=== PATIENT | female | born 1975 | race Caucasian/White ===

== ENCOUNTER → 2016-12-18 | Outpatient (CLI) | payer MEDICARE ==
--- NOTE | 2016-12-18 08:58 | MM ---
Reason for exam: clinical finding. Last mammogram was performed 4 years and 4 months ago. History: Took hormonal contraceptives for 9 years beginning at age 18. Physical Findings: Nurse did not find any significant physical abnormalities on exam. MG 3D Diag Mammo W/Cad ROLA Bilateral CC and MLO view(s) were taken. Prior study comparison: August 20, 2012, bilateral digital screening mammo w/CAD. February 17, 2012, left diagnostic mammogram w/CAD. The breast tissue is extremely dense which could obscure a lesion on mammography. There is no discrete abnormality including area of concern. No significant new findings when compared with previous films. These results were verbally communicated with the patient and result sheet given to the patient on 12/18/16. ASSESSMENT: Incomplete: need additional imaging evaluation, BI-RAD 0 RECOMMENDATION: Ultrasound of the right breast. Manage patient on a clinical basis.
--- NOTE | 2016-12-18 09:00 | USB ---
Reason for exam: additional evaluation requested from abnormal screening. History: Took hormonal contraceptives for 9 years beginning at age 18. US Breast RT Right breast ultrasound includes all four quadrants, the retroareolar region and axilla. Finding demonstrates 1.1 x 0.3 x 0.8cm oval, mixed, hypoechoic probable fibrodenoma at 3 o'clock. These results were verbally communicated with the patient and result sheet given to the patient on 12/18/16. ASSESSMENT: Probably benign, BI-RAD 3 RECOMMENDATION: Ultrasound of the right breast in 6 months.
== END | disposition home or self-care (01) ==
LOC: RADMAMWWP 07:37
PROVIDERS: ATTEND Family Medicine
DX: R92.2 Inconclusive mammogram (principal); R92.8 Other abnormal and inconclusive findings on diagnostic imaging of breast; N64.4 Mastodynia
CPT/HCPCS: 76641; G0204; G0279

== ENCOUNTER → 2017-01-07 | Outpatient (CLI) | payer MEDICARE ==
--- NOTE | 2017-01-08 09:24 | MR ---
EXAMINATION TYPE: MR orbits wo/w con DATE OF EXAM: 01/07/2017 3:48 PM COMPARISON: MRI brain 03/24/2015 HISTORY: Migraines, lt eye spasms/loss of vision for moments at a time Pseudopapilledema of optic disc. TECHNIQUE: Multiplanar multiecho imaging on a 3.0 Carissa magnet is performed through the orbits. CONTRAST: Standard multiplanar, multisequence MRI departmental protocol utilizing 11 mL intravenous MultiHance gadolinium contrast. FINDINGS: The craniovertebral junction is normal. Pituitary appears unremarkable. Corpus callosum and sagittal plane appears unremarkable. Internal auditory canals and cerebellar pontine angles within t he [id number] are unremarkable. Normal vascular flow voids are within the carotid siphon and anter ior platinum of Carter. Vertebrobasilar system as visualized appears normal. Anterior communicating art eli is patent. The orbits are symmetrical. Globes are symmetrical. Intraconal and extraconal fat appears normal. No abnormal enhancement is evident within the orbits are within the visualized portions of the brain. P ortions of the ventricles within the [id number] appear unremarkable. No temporal horn dilatation i s evident to suggest hydrocephalus or increased intracranial pressure. Superior ophthalmic veins appe ar normal. Lacrimal glands are unremarkable. Extraocular muscles appear normal IMPRESSION: MRI of the orbits appear unremarkable. No suspicious etiology to account for papilledema is evident
== END | disposition home or self-care (01) ==
LOC: RADMRIMAIN 15:02
PROVIDERS: ATTEND Ophthalmology
DX: H47.033 Optic nerve hypoplasia, bilateral (principal); G43.909 Migraine, unspecified, not intractable, without status migrainosus
CPT/HCPCS: 70543; A9577

== ENCOUNTER → 2017-02-04 | Day surgery (SDC) | payer MEDICARE ==
[~2017-02-04] MED LIST: BACITRACIN OINT 1 EACH PACKET TOPICAL ONE; LIDOCAINE 1% INJ 10MG/ML (20 ML MDV) ONE; LIDOCAINE 1%-EPI 1:100,000 20 ML VIAL ONE
--- NOTE | 2017-02-04 13:52 | USB ---
EXAMINATION TYPE: US biopsy breast VAD RT DATE OF EXAM: 02/04/2017 CLINICAL HISTORY: N63 Breast lump. TECHNIQUE: Ultrasound guided core biopsy of right breast. COMPARISON: NONE FINDINGS: The procedure of ultrasound guided core biopsy was explained to the patient. Benefits, alternatives, and risks were discussed. An informed consent was then obtained. The patient was placed in supine positioning for imaging and for the procedure. The overlying skin was prepped and draped in usual sterile fashion. 1 % Xylocaine with and without epinephrine was used to anesthetize the skin and subcutaneous tissue up to area of concern in the right breast. Under ultrasound guidance, a 12-gauge vacuum assisted biopsy gun device was used to obtain 6 core samples. Following this, a biopsy clip was left in lesion. The patient tolerated the procedure well without any immediate complication. The patient was kept in the radiology department for short stay after the procedure and then discharged home in stable condition. Estimated blood loss was less than 1 cc. Pathology is pending. IMPRESSION: SUCCESSFUL ULTRASOUND-GUIDED VAD BIOPSY OF THE RIGHT BREAST. Pathology Results: Benign BREAST, LEFT, CORE BIOPSY: FIBROCYSTIC CHANGES INCLUDING CYSTS, FIBROSIS, APOCRINE METAPLASIA, AND ADENOSIS. Recommendation Follow up ultrasound of the left breast in 6 months. MAYE
== END ==
LOC: RADUSWWP 12:30
PROVIDERS: ATTEND Surgery
DX: D24.1 Benign neoplasm of right breast (principal); N63 Unspecified lump in breast; N60.31 Fibrosclerosis of right breast; N60.21 Fibroadenosis of right breast; N60.11 Diffuse cystic mastopathy of right breast
CPT/HCPCS: 88305; 19083; A4648; J2001

== ENCOUNTER 2018-05-02 12:52 | Emergency (ER) | payer MEDICARE ==
[2018-05-02 13:31] VITALS: BP 143/89; PULSE 86; RESP 16; TEMP 98
[2018-05-02] MEDS ORDERED: SODIUM CHLORIDE 0.9% 1,000 ML IV ONE (13:59)
--- NOTE | 2018-05-02 14:29 | ED ---
General Adult HPI - General Chief complaint: Recheck/Abnormal Lab/Rx Stated complaint: poss medication rxn Time Seen by Provider: 05/02/18 13:52 Source: patient, RN notes reviewed, old records reviewed Mode of arrival: ambulatory Limitations: no limitations - History of Present Illness Initial comments: 42-year-old female presents for suspected medication reaction. Patient took doxycycline which she is taking for acne. Approximately 30-45 minutes after taking that she had multiple complaints including bilateral ear pain, headache, chest pain, abdominal pain. Patient had some nausea no vomiting. She states she has previously had same reaction to tetracycline. She reports this medication and did not know that doxycycline was related. - Related Data Home Medications Medication Instructions Recorded Confirmed ALPRAZolam [Xanax] 0.5 mg PO Q8HR PRN 09/07/15 09/07/15 Cholecalciferol [Vitamin D3] 1,000 unit PO DAILY 09/07/15 09/07/15 Diclofenac Potassium [Cataflam] 50 mg PO TID PRN 09/07/15 09/07/15 Dicyclomine [Bentyl] 10 mg PO QID 09/07/15 09/07/15 FLUoxetine HCL [PROzac] 40 mg PO DAILY 09/07/15 09/07/15 Levothyroxine Sodium [Synthroid] 25 mcg PO QAM 09/07/15 09/07/15 Meclizine [Antivert] 25 mg PO TID PRN 09/07/15 09/07/15 Promethazine [Phenergan] 25 mg PO Q8H PRN 09/07/15 09/07/15 Rizatriptan Benzoate [Maxalt] 10 mg PO ONCE PRN 09/07/15 09/07/15 Topiramate 75 mg PO BID 09/07/15 09/07/15 oxyCODONE-APAP 5-325MG [Percocet 1 tab PO TID PRN 09/07/15 09/07/15 5-325 mg] traZODone HCL [Desyrel] 100 mg PO HS 09/07/15 09/07/15 Allergies Allergy/AdvReac Type Severity Reaction Status Date / Time latex Allergy RED SKIN Verified 05/02/18 13:30 AND SKIN BLISTERING doxycycline AdvReac Unknown Verified 05/02/18 14:29 morphine AdvReac severe Verified 05/02/18 13:30 vomiting Review of Systems ROS Statement: Those systems with pertinent positive or pertinent negative responses have been documented in the HPI. ROS Other: All systems not noted in ROS Statement are negative. Past Medical History Past Medical History: Fibromyalgia, Thyroid Disorder Additional Past Medical History / Comment(s): SEE DR KURTZ'S H&P, HX MIGRAINES ,HYPOTHYROIDISM,PARATHYROIDISM,IBS,VERTIGO,SOB History of Any Multi-Drug Resistant Organisms: None Reported Past Surgical History: Hysterectomy Additional Past Surgical History / Comment(s): CUBITAL AND CARPEL TUNNEL Past Anesthesia/Blood Transfusion Reactions: Motion Sickness, Postoperative Nausea & Vomiting (PONV) Past Psychological History: Anxiety, Depression Smoking Status: Never smoker Past Alcohol Use History: None Reported Past Drug Use History: None Reported - Past Family History Mother Family Medical History: Mitral Valve Prolapse (MVP) Father Family Medical History: No Reported History General Exam Limitations: no limitations General appearance: alert, in no apparent distress, anxious Head exam: Present: atraumatic, normocephalic Eye exam: Present: normal appearance, PERRL, EOMI ENT exam: Present: normal exam Neck exam: Present: normal inspection. Absent: tenderness, meningismus Respiratory exam: Present: normal lung sounds bilaterally. Absent: respiratory distress, wheezes, rales Cardiovascular Exam: Present: regular rate, normal rhythm GI/Abdominal exam: Present: soft. Absent: distended, tenderness, guarding, rebound Extremities exam: Present: normal inspection Neurological exam: Present: alert, oriented X3, CN II-XII intact. Absent: motor sensory deficit Psychiatric exam: Present: normal affect, normal mood Skin exam: Present: warm, dry, intact. Absent: cyanosis, diaphoretic Course Vital Signs 05/02/18 13:29 Temperature 98 F Pulse Rate 86 Respiratory 16 Rate Blood Pressure 143/89 O2 Sat by Pulse 98 Oximetry Medical Decision Making - Medical Decision Making 42-year-old female presenting with suspected ALLERGIC reaction. Patient has multiple complaints, she is evaluated in the emergency department, EKG, laboratory studies, and urinalysis are ordered however on reevaluation prior to these tests being obtained patient is feeling better. She is eager for discharge. She does not want any further testing or evaluation the emergency department. Doxycycline is adequate to her ALLERGY profile. She will follow- up with her primary care physician and return with worsening or changing symptoms. Disposition Clinical Impression: Medication reaction Disposition: HOME SELF-CARE Condition: Good Instructions: Antibiotic Medication Allergy (ED) Is patient prescribed a controlled substance at d/c from ED?: No Referrals: Sánchez Martel DO [Primary Care Provider] - 1-2 days Time of Disposition: 14:28
== END 2018-05-02 14:49 | disposition home or self-care (01) ==
LOC: EC 12:52
DX: R07.9 Chest pain, unspecified (principal); R51 Headache; R10.9 Unspecified abdominal pain; R11.0 Nausea; H92.03 Otalgia, bilateral; T36.4X5A Adverse effect of tetracyclines, initial encounter; F41.9 Anxiety disorder, unspecified; F32.9 Major depressive disorder, single episode, unspecified; E03.9 Hypothyroidism, unspecified; Z79.899 Other long term (current) drug therapy; Z91.040 Latex allergy status; Z88.5 Allergy status to narcotic agent; Z88.1 Allergy status to other antibiotic agents
CPT/HCPCS: 99285

== ENCOUNTER → 2018-05-05 | Outpatient (CLI) | payer MEDICARE ==
--- NOTE | 2018-05-05 11:58 | MM ---
Reason for exam: additional evaluation requested from prior study. Last mammogram was performed 1 year and 4 months ago. History: Benign US biopsy breast VAD RT of the right breast, February 04, 2017. Took hormonal contraceptives for 9 years beginning at age 18. Physical Findings: Nurse did not find any significant physical abnormalities on exam. MG 3D Diag Mammo W/Cad ROLA Bilateral CC and MLO view(s) were taken. Prior study comparison: December 18, 2016, bilateral MG 3d diag mammo w/cad ROLA. August 20, 2012, bilateral digital screening mammo w/CAD. Previous mammotome biopsy in the right breast. No significant new findings when compared with previous films. These results were verbally communicated with the patient and result sheet given to the patient on 05/05/18. ASSESSMENT: Benign, BI-RAD 2 RECOMMENDATION: Routine screening mammogram of both breasts in 1 year.
--- NOTE | 2018-05-05 11:59 | USB ---
Reason for exam: follow-up at short interval from prior study. History: Benign US biopsy breast VAD RT of the right breast, February 04, 2017. Took hormonal contraceptives for 9 years beginning at age 18. US Breast RT Right complete breast ultrasound includes all four quadrants, the retroareolar region and axilla. Finding demonstrates a 0.8 x 0.4 x 0.7cm oval, solid lesion at 3 o'clock, previously biopsied. These results were verbally communicated with the patient and result sheet given to the patient on 05/05/18. ASSESSMENT: Benign, BI-RAD 2 RECOMMENDATION: Routine screening mammogram of both breasts in 1 year.
== END | disposition home or self-care (01) ==
LOC: RADMAMWWP 08:44
PROVIDERS: ATTEND Family Medicine
DX: D24.1 Benign neoplasm of right breast (principal)
CPT/HCPCS: 77066; 76641; G0279; 77062

== ENCOUNTER → 2019-04-01 | Outpatient (CLI) | payer MEDICARE ==
[2019-04-01 12:08] LABS: Basophils % (A) 0 %; Eosinophils # (A) 0.1 k/uL (0-0.7); Eosinophils % (A) 1 %; HGB 14.6 gm/dL (11.4-16.0); Lymphocytes # (A) 2.2 k/uL (1.0-4.8); Lymphocytes % (A) 28 %; MCH 28.2 pg (25.0-35.0); MCHC 31.7 g/dL (31.0-37.0); MCV 89.1 fL (80.0-100.0); Mean Platelet Volume 6.6; Monocytes # (A) 0.4 k/uL (0-1.0); Monocytes % (A) 5 %; Neutrophils # (A) 5.2 k/uL (1.3-7.7); Neutrophils % (A) 64 %; Platelet Count 322 k/uL (150-450); RBC 5.17 m/uL (3.80-5.40); RDW 12.7 % (11.5-15.5); WBC 8.1 k/uL (3.8-10.6)
[2019-04-01 15:43] LABS: African American GFR (CKD) 104.7 (60.0-200.0); BUN/Creat Ratio 17.5 Ratio (12.00-20.00); Calcium 9.1 mg/dL (8.7-10.3); Non-African American GFR(CKD) 90.3 (60.0-200.0); Potassium 4.4 mmol/L (3.5-5.5)
== END | disposition home or self-care (01) ==
LOC: LABWHC1 11:21
PROVIDERS: ATTEND Psychiatry & Neurology Neurology
DX: T42.6X5A Adverse effect of other antiepileptic and sedative-hypnotic drugs, initial encounter (principal)
CPT/HCPCS: 36415; 80048; 85025

== ENCOUNTER → 2020-07-03 | Outpatient (CLI) | payer MEDICARE ==
--- NOTE | 2020-07-05 09:16 | MM ---
Reason for exam: screening (asymptomatic). Last mammogram was performed 2 years and 2 months ago. History: Benign US biopsy breast VAD RT of the right breast, February 04, 2017. Took hormonal contraceptives for 9 years beginning at age 18. Physical Findings: A clinical breast exam by your physician is recommended on an annual basis and results should be correlated with mammographic findings. MG 3D Screening Mammo W/Cad Bilateral CC and MLO view(s) were taken. Prior study comparison: May 05, 2018, bilateral MG 3d diag mammo w/cad ROLA. December 18, 2016, bilateral MG 3d diag mammo w/cad ROLA. The breast tissue is heterogeneously dense. This may lower the sensitivity of mammography. Previous mammotome biopsy in the right breast. Lateral nodular asymmetry right CC view incompletely disperses on 3D. ASSESSMENT: Incomplete: need additional imaging evaluation, BI-RAD 0 RECOMMENDATION: Special view mammogram of the right breast. (3D) If lesion persists on supplemental views, image directed ultrasound is recommended. [facility] will attempt to contact patient to return for supplemental views and ultrasound if indicated.
== END | disposition home or self-care (01) ==
LOC: RADMAMWWP 16:15
PROVIDERS: ATTEND Family Medicine
DX: Z12.31 Encounter for screening mammogram for malignant neoplasm of breast (principal)
CPT/HCPCS: 77063; 77067

== ENCOUNTER → 2020-07-06 | Outpatient (CLI) | payer MEDICARE ==
--- NOTE | 2020-07-06 10:23 | MM ---
Reason for exam: additional evaluation requested from abnormal screening. Last mammogram was performed less than 1 month ago. History: Benign US biopsy breast VAD RT of the right breast, February 04, 2017. Took hormonal contraceptives for 9 years beginning at age 18. Physical Findings: Nurse did not find any significant physical abnormalities on exam. MG 3D Work Up W/Cad RT Spot compression CC and LM view(s) were taken of the right breast. Prior study comparison: July 03, 2020, bilateral MG 3d screening mammo w/cad. May 05, 2018, bilateral MG 3d diag mammo w/cad ROLA. There is no discrete abnormality. These results were verbally communicated with the patient and result sheet given to the patient on 07/06/20. ASSESSMENT: Negative, BI-RAD 1 RECOMMENDATION: Return to routine screening mammogram schedule for both breasts.
== END | disposition home or self-care (01) ==
LOC: RADMAMWWP 08:50
PROVIDERS: ATTEND Family Medicine
DX: R92.8 Other abnormal and inconclusive findings on diagnostic imaging of breast (principal)
CPT/HCPCS: 77065; G0279; 77061

== ENCOUNTER → 2020-12-15 | Outpatient (CLI) | payer MEDICARE ==
--- NOTE | 2020-12-15 14:48 | XR ---
EXAMINATION TYPE: XR thoracic spine 2V DATE OF EXAM: 12/15/2020 COMPARISON: NONE HISTORY: 45-year-old female M5 4.6, pain TECHNIQUE: 3 views FINDINGS: 12 rib bearing thoracic vertebral bodies. All pedicles are visualized. Vertebral body heights are pre served and alignment is maintained. IMPRESSION: No vertebral compression collapse or malalignment.
== END | disposition home or self-care (01) ==
LOC: RADXRMAIN 08:26
PROVIDERS: ATTEND Family Medicine
DX: M54.6 Pain in thoracic spine (principal)
CPT/HCPCS: 72070

== ENCOUNTER → 2021-03-23 | Outpatient (CLI) | payer MEDICARE ==
--- NOTE | 2021-03-23 10:18 | XR ---
EXAMINATION TYPE: XR chest 2V DATE OF EXAM: 03/23/2021 COMPARISON: NONE HISTORY: dyspnea on exertion. TECHNIQUE: Frontal and lateral views of the chest are obtained. FINDINGS: There is no focal air space opacity, pleural effusion, or pneumothorax seen. The cardiac silhouette size is within normal limits. The osseous structures are intact. IMPRESSION: No acute cardiopulmonary process.
== END | disposition home or self-care (01) ==
LOC: RADXRMAIN 09:25
PROVIDERS: ATTEND Family Medicine
DX: R06.09 Other forms of dyspnea (principal)
CPT/HCPCS: 71046

== ENCOUNTER → 2021-05-08 | Outpatient (CLI) | payer MEDICARE | LOC: CPPFTMAIN 10:25 | PROVIDERS: ATTEND Family Medicine | DX: R06.09 Other forms of dyspnea (principal); Z91.040 Latex allergy status; Z88.1 Allergy status to other antibiotic agents; Z88.5 Allergy status to narcotic agent | CPT/HCPCS: 94060; 94726; 94729 ==

== ENCOUNTER → 2021-07-17 | Outpatient (CLI) | payer SELFPAY ==
[2021-07-17 18:23] LABS: Protein, Total 6.6 g/dL (6.2-8.2)
[2021-07-18 01:04] LABS: C Reactive Protein <0.30 mg/dL (0.00-0.80); Creatine Kinase 26 U/L (26-186)
[2021-07-18 14:21] LABS: Albumin 4.23 g/dL (3.80-4.90); Gamma Globulin 0.92 g/dL (0.70-1.50)
== END | disposition home or self-care (01) ==
LOC: LABWHC1 09:07
PROVIDERS: ATTEND Psychiatry & Neurology Neurology
DX: G60.9 Hereditary and idiopathic neuropathy, unspecified (principal); R53.1 Weakness; R73.9 Hyperglycemia, unspecified
CPT/HCPCS: 36415; 82550; 82607; 82747; 83036; 84165; 84439; 84443; 85652; 86038; 86140; 86618

== ENCOUNTER → 2021-12-19 | Outpatient (CLI) | payer BC, MEDICARE ==
--- NOTE | 2021-12-20 11:32 | MM ---
Reason for exam: screening (asymptomatic). Last mammogram was performed 1 year and 5 months ago. History: Benign US biopsy breast VAD RT of the right breast, February 04, 2017. Took hormonal contraceptives for 9 years beginning at age 18. Physical Findings: A clinical breast exam by your physician is recommended on an annual basis and results should be correlated with mammographic findings. MG 3D Screening Mammo W/Cad Bilateral CC and MLO view(s) were taken. Prior study comparison: July 06, 2020, right breast MG 3d work up w/cad RT. July 03, 2020, bilateral MG 3d screening mammo w/cad. The breast tissue is heterogeneously dense. This may lower the sensitivity of mammography. Previous mammotome biopsy in the right breast. No significant changes when compared with prior studies. ASSESSMENT: Benign, BI-RAD 2 RECOMMENDATION: Routine screening mammogram of both breasts in 1 year.
== END | disposition home or self-care (01) ==
LOC: RADMAMWWP 08:48
PROVIDERS: ATTEND Family Medicine
DX: Z12.31 Encounter for screening mammogram for malignant neoplasm of breast (principal)
CPT/HCPCS: 77063; 77067

== ENCOUNTER → 2022-12-25 | Outpatient (CLI) | payer BC, MEDICARE ==
--- NOTE | 2022-12-26 20:07 | MM ---
Reason for Exam: Screening (asymptomatic). Last screening mammogram was performed 12 month(s) ago. Patient History: Menarche at age 13. First Full-Term at age 23. Hysterectomy at age 30. Postmenopausal. Patient has history of breast feeding. Hormonal Contraceptives for 9 years from age 18 until age 27. 02/04/2017, Benign Core Biopsy on the right side. Risk Values: Angie 5 year model risk: 1.1%. NCI Lifetime model risk: 10.0%. Prior Study Comparison: 07/03/2020 Bilateral Screening Mammogram, [facility]. 07/06/2020 Right Diagnostic Mammogram, [facility]. 12/19/2021 Bilateral Screening Mammogram, [facility]. Tissue Density: The breast tissue is heterogeneously dense. This may lower the sensitivity of mammography. Findings: Analyzed By CAD. Asymmetric density superior left MLO view is unchanged. There is no suspicious group of microcalcifications or new suspicious mass in either breast. Overall Assessment: Benign, BI-RAD 2 Management: Screening Mammogram of both breasts in 1 year. 1. Patient should continue monthly self breast exams. 2. A clinical breast exam by your physician is recommended on an annual basis. 3. This exam should not preclude additional follow-up of suspicious palpable abnormalities. Electronically signed and approved by: Evy Joseph M.D. Radiologist
== END | disposition home or self-care (01) ==
LOC: RADMAMWWP 16:26
PROVIDERS: ATTEND Family Medicine
DX: Z12.31 Encounter for screening mammogram for malignant neoplasm of breast (principal); Z78.0 Asymptomatic menopausal state; Z98.890 Other specified postprocedural states
CPT/HCPCS: 77063; 77067

== ENCOUNTER → 2023-01-20 | Outpatient (CLI) | payer BC, MEDICARE ==
--- NOTE | 2023-01-20 17:32 | MR ---
EXAMINATION TYPE: MR cervical spine wo con DATE OF EXAM: 01/20/2023 COMPARISON: None HISTORY: 47-year-old female Migraines, neck/shoulder pain and stiffness, dizziness TECHNIQUE: Multiplanar, multisequence images of the cervical spine were acquired without contrast. FINDINGS: No previous cervical junction abnormality, predental space widening, or prevertebral soft tissue swel ling. Mild early degenerative disc disease with variable disc desiccation throughout the cervical spine. There is a small right paracentral disc bulging at C3-C4. No large focal disc herniation or significant spinal canal stenosis. Alignment is maintained. No suspicious bone marrow replacement. Normal course, caliber, and signal intensity of the cervical spinal cord. No significant neuroforaminal stenosis is seen. IMPRESSION: 1. Mild early degenerative disc desiccation throughout the cervical spine. 2. There is a small right paracentral disc bulge at C3-C4. 3. No large focal disc herniation or significant spinal canal stenosis. No significant neuroforaminal stenosis seen.
== END | disposition home or self-care (01) ==
LOC: RADMRIMAIN 11:30
PROVIDERS: ATTEND Psychiatry & Neurology Neurology
DX: M50.31 Other cervical disc degeneration, high cervical region (principal)
CPT/HCPCS: 72141

== ENCOUNTER → 2023-03-21 | Day surgery (SDC) | payer BC, MEDICARE ==
[~2023-03-21] MED LIST changes: -BACITRACIN OINT 1 EACH PACKET TOPICAL ONE; +LACTATED RINGERS 1,000 ML IV SCH; +LIDOCAINE 1% (10MG/ML) FOR IV START INTRADERMA PRN; -LIDOCAINE 1% INJ 10MG/ML (20 ML MDV) ONE; -LIDOCAINE 1%-EPI 1:100,000 20 ML VIAL ONE; +PROPOFOL 10 MG/ML 20 ML VIAL IV ONE
[2023-03-21 10:34] VITALS: TEMP 97.3
--- NOTE | 2023-03-21 11:06 | P.PCN ---
Date of Procedure: 03/21/23 Procedure(s) Performed: BRIEF HISTORY: Patient is a 47-year-old pleasant white seen scheduled for an elective colonoscopy as a part of screening for colon cancer. PROCEDURE PERFORMED: Colonoscopy. PREOPERATIVE DIAGNOSIS: Screening for colon cancer. IV sedation per Anesthesia. PROCEDURE: After informed consent was obtained, the patient, was brought into the endoscopy unit. IV sedation was administered by Anesthesia under continuous monitoring. Digital rectal examination was normal. Initially the Olympus CF-160 flexible video colonoscope was then inserted in the rectum, gradually advanced into the cecum without any difficulty. Careful examination was performed as the scope was gradually being withdrawn. Ileocecal valve and the appendiceal orifice were visualized and appeared normal. Prep was excellent. Mucosa of the cecum, ascending colon, transverse colon, descending colon, sigmoid colon, and rectum appeared normal. Retroflexion was performed in the rectum and no lesions were seen. The patient tolerated the procedure well. IMPRESSION: Normal-appearing colon from rectum to cecum with no emesis of colorectal neoplasia . RECOMMENDATIONS: Findings of this examination were discussed with the patient as well as a family. She was advised to have a repeat screening colonoscopy in 10 years..
[2023-03-21 11:29] VITALS: BP 147/79; PULSE 72; RESP 12
== END ==
LOC: ORWHC2ENDO 09:54
PROVIDERS: ATTEND Internal Medicine Gastroenterology
DX: Z12.11 Encounter for screening for malignant neoplasm of colon (principal); J45.909 Unspecified asthma, uncomplicated; E07.9 Disorder of thyroid, unspecified; F41.9 Anxiety disorder, unspecified; F32.A Depression, unspecified; Z79.890 Hormone replacement therapy; Z79.891 Long term (current) use of opiate analgesic; Z79.899 Other long term (current) drug therapy; Z88.1 Allergy status to other antibiotic agents; Z88.5 Allergy status to narcotic agent
CPT/HCPCS: J2704; G0121; 45378

== ENCOUNTER → 2023-08-11 | Outpatient (CLI) | payer BC, MEDICARE ==
--- NOTE | 2023-08-11 11:28 | MR ---
EXAMINATION TYPE: MR lumbar spine wo con DATE OF EXAM: 08/11/2023 COMPARISON: NONE HISTORY: Lower back pain, BLE radiculopathy, imbalance, falls. TECHNIQUE: T1 and T2 axial and sagittal images of the lumbar spine are submitted. FINDINGS: There is no abnormal signal seen within the visualized spinal cord or paraspinal soft tissu es. At L1-2 there is no disc herniation, degenerative disc disease, canal stenosis, or foraminal encroach ment. At L2-3 there is no disc herniation, degenerative disc disease, canal stenosis, or foraminal encroach ment At L3-4 there is no disc herniation, degenerative disc disease, canal stenosis, or foraminal encroach ment. Mild hypertrophic arthropathy of the facets. At L4-5 there is no disc herniation, degenerative disc disease, canal stenosis, or foraminal encroach ment. Mild hypertrophic neuropathy since. At L5-S1 there is disc desiccation. Very mild disc bulging but no canal stenosis or foraminal. Mild h ypertrophic facet. IMPRESSION: 1. Mild degenerative disc disease and minimal disc bulging L5-S1. No discrete herniation, canal steno sis, or foraminal encroachment at any of the visualized levels. 2. Multilevel mild facet arthropathy.
== END | disposition home or self-care (01) ==
LOC: RADMRIMAIN 10:24
PROVIDERS: ATTEND Psychiatry & Neurology Neurology
DX: M47.26 Other spondylosis with radiculopathy, lumbar region (principal); M51.17 Intervertebral disc disorders with radiculopathy, lumbosacral region; M51.27 Other intervertebral disc displacement, lumbosacral region
CPT/HCPCS: 72148

== ENCOUNTER → 2023-12-31 | Outpatient (CLI) | payer BC, MEDICARE ==
--- NOTE | 2023-12-31 23:16 | MM ---
Reason for Exam: Screening (asymptomatic). Last mammogram was performed 1 year(s) and 1 month(s) ago. Patient History: Menarche at age 13. First Full-Term at age 23. Hysterectomy at age 30. Postmenopausal. Patient has history of breast feeding. Currently using Estrogen, starting at age 47. Hormonal Contraceptives for 9 years from age 18 until age 27. 02/04/2017, Benign Core Biopsy on the right side. Risk Values: Angie 5 year model risk: 1.1%. NCI Lifetime model risk: 9.8%. Prior Study Comparison: 07/06/2020 Right Diagnostic Mammogram, [facility]. 12/19/2021 Bilateral Screening Mammogram, [facility]. 12/25/2022 Bilateral MG 3D screening mammo w/cad, [facility]. Tissue Density: The breasts are heterogeneously dense, which may obscure small masses. Findings: Analyzed By CAD. The pattern is symmetrical. Core marker is within the right breast. No significant interval change. No suspicious groups of microcalcifications, spiculated or lobular masses, architectural distortion or other secondary signs of malignancy are mammographically apparent. Overall Assessment: Benign, BI-RAD 2 Management: Screening Mammogram of both breasts in 1 year. A negative mammogram report should not preclude additional follow up of suspicious palpable abnormalities. Patient should continue monthly self breast exam. A clinical breast exam by your physician is recommended on an annual basis and results should be correlated with mammographic findings. Note on Angie scores and lifetime risk: 1. A Angie score greater than 3% is considered moderate risk. If this is the case, consider specialist referral to assess eligibility for a risk reducing agent. 2. If overall lifetime risk for the development of breast cancer is 20% or higher, the patient may qualify for future screening with alternating mammogram and breast MRI. Electronically signed and approved by: Simba Hopkins D.O. Radiologis
== END | disposition home or self-care (01) ==
LOC: RADMAMWWP 06:51
PROVIDERS: ATTEND Family Medicine
DX: Z12.31 Encounter for screening mammogram for malignant neoplasm of breast (principal); Z78.0 Asymptomatic menopausal state
CPT/HCPCS: 77063; 77067

== ENCOUNTER → 2025-01-11 | Outpatient (CLI) | payer BC, MEDICARE ==
--- NOTE | 2025-01-11 15:19 | MM ---
Reason for Exam: Screening (asymptomatic). Last screening mammogram was performed 12 month(s) ago. Patient History: Menarche at age 13. First Full-Term at age 23. Hysterectomy at age 30. Postmenopausal. Patient has history of breast feeding. Currently using Estrogen, starting at age 47. Hormonal Contraceptives for 9 years from age 18 until age 27. 02/04/2017, Benign Core Biopsy on the right side. Risk Values: Angie 5 year model risk: 1.0%. NCI Lifetime model risk: 9.6%. Prior Study Comparison: 12/18/2016 Bilateral Diagnostic Mammogram, [facility]. 05/05/2018 Bilateral Diagnostic Mammogram, [facility]. 07/03/2020 Bilateral Screening Mammogram, [facility]. 07/06/2020 Right Diagnostic Mammogram, [facility]. 12/19/2021 Bilateral Screening Mammogram, [facility]. 12/25/2022 Bilateral MG 3D screening mammo w/cad, [facility]. 12/31/2023 Bilateral MG 3D screening mammo w/cad, [facility]. Tissue Density: The breasts are heterogeneously dense, which may obscure small masses. Findings: Analyzed By CAD. Mammotome biopsy clip in the right breast is redemonstrated. There is no suspicious group of microcalcifications or new suspicious mass in either breast. Overall Assessment: Benign, BI-RAD 2 Management: Screening Mammogram of both breasts in 1 year. . Patient should continue monthly self-breast exams. A clinical breast exam by your physician is recommended on an annual basis. This exam should not preclude additional follow-up of suspicious palpable abnormalities. Note on Angie scores and lifetime risk: 1. A Angie score greater than 3% is considered moderate risk. If this is the case, consider specialist referral to assess eligibility for a risk reducing agent. 2. If overall lifetime risk for the development of breast cancer is 20% or higher, the patient may qualify for future screening with alternating mammogram and breast MRI. [facility], , 01/11/2025 3:16 PM. Electronically signed and approved by: Hussein Isabel M.D.
== END | disposition home or self-care (01) ==
LOC: RADMAMWWP 13:48
PROVIDERS: ATTEND Family Medicine
DX: Z12.31 Encounter for screening mammogram for malignant neoplasm of breast (principal); R92.333 Mammographic heterogeneous density, bilateral breasts; Z78.0 Asymptomatic menopausal state; Z92.0 Personal history of contraception
CPT/HCPCS: 77063; 77067